=== PATIENT | female | born 1990 | race Caucasian/White ===

== ENCOUNTER 2017-01-30 13:58 | Emergency (ER) | payer MEDICAID, OTHER ==
--- NOTE | 2017-01-30 14:09 | ED PDOC ---
Arrival/HPI - General Time Seen by Provider: 01/30/17 14:09 Historian: Patient - History of Present Illness Narrative History of Present Illness (Text): 01/30/17 14:09 26 y/o female, no significant pmh, nkda, c/o vaginal discharge and foul odor smell x 2 days. Pt. stated that she had unprotected sex about 3 days ago, started to have vaginal discharge with fishy smell, no abdominal or pelvic pain , no urinary symptoms, no night sweat, no dizziness, no chest pain or shortness of breath, no other medical or psychological complaints. Past Medical History - Provider Review Nursing Documentation Reviewed: Yes Family/Social History - Physician Review Nursing Documentation Reviewed: Yes Family/Social History: Unknown Family HX Allergies/Home Meds Allergies/Adverse Reactions: Allergies No Known Allergies Allergy (Verified 01/30/17 14:10) Review of Systems - Review of Systems Constitutional: absent: Fatigue, Fevers Eyes: absent: Vision Changes ENT: absent: Hearing Changes Respiratory: absent: SOB, Cough Cardiovascular: absent: Chest Pain Gastrointestinal: absent: Abdominal Pain, Nausea, Vomiting Genitourinary Female: Vaginal Discharge. absent: Dysuria, Frequency, Vaginal Bleeding Musculoskeletal: absent: Arthralgias, Back Pain Skin: absent: Rash, Pruritis Neurological: absent: Headache Physical Exam Vital Signs Temp Pulse Resp BP Pulse Ox 01/30/17 16:13 80 18 102/68 99 01/30/17 14:23 98.3 F 85 19 126/62 100 - Systems Exam Head: Present: Atraumatic, Normocephalic Pupils: Present: PERRL Extroacular Muscles: Present: EOMI Conjunctiva: Present: Normal Mouth: Present: Moist Mucous Membranes Neck: Present: Normal Range of Motion Respiratory/Chest: Present: Clear to Auscultation, Good Air Exchange. No: Respiratory Distress, Accessory Muscle Use Cardiovascular: Present: Regular Rate and Rhythm, Normal S1, S2. No: Murmurs Abdomen: Present: Normal Bowel Sounds. 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 ). No: Vaginal Discharge , Vaginal Bleeding, Vaginal Lesions, Adenexal Tenderness, Adenexal Mass, Cervical Motion Tendernes, Odor Back: Present: Normal Inspection. No: CVA Tenderness Upper Extremity: Present: Normal Inspection. No: Cyanosis, Edema Lower Extremity: Present: Normal Inspection. No: Edema Neurological: Present: GCS=15, Speech Normal, Motor Func Grossly Intact, Gait Normal, Memory Normal Skin: Present: Warm, Dry, Normal Color. No: Rashes Psychiatric: Present: Alert, Oriented x 3, Normal Insight, Normal Concentration Medical Decision Making ED Course and Treatment: 01/30/17 14:23 -UA -GC and chlamydia, agreed to be prophylatic treatment for gc/chlamydia 01/30/17 15:09 -Urine hcg negative. 01/30/17 16:45 -UA show +UTI -Rocephine and azithromycin ordered. -Discharge home with flagyl, macrobid, stay hydrated, bed rest, notify all your sexual partner for STD testing, use condom in the future, follow up with your own pmd and obgyn within 2 days, return to the ER for any new or worsening signs or symptoms. - Lab Interpretations Lab Results: Lab Results 01/30/17 14:01: Urine Color Light yellow, Urine Appearance Cloudy, Urine pH 7.5 , Ur Specific [place] 1.015, Urine Protein Negative, Urine Glucose (UA) Negative , Urine Ketones Negative, Urine Blood Negative, Urine Nitrate Positive H, Urine Bilirubin Negative, Urine Urobilinogen 0.2, Ur Leukocyte Esterase Moderate H, Urine RBC 0 - 2, Urine WBC 1 - 3, Ur Epithelial Cells 1 - 3, Amorphous Sediment Many, Urine Bacteria Few I have reviewed the lab results: Yes Interpretation: Abnormal lab values (UA+ show +UTI) - Medication Orders Current Medication Orders: Azithromycin (Zithromax) 1,000 mg PO STAT STA PRN Reason: Protocol Stop: 01/30/17 16:44 - 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 Disposition/Present on Arrival - Present on Arrival Any Indicators Present on Arrival: No History of DVT/PE: No History of Uncontrolled Diabetes: No Urinary Catheter: No History of Decub. Ulcer: No - Disposition Have Diagnosis and Disposition been Completed?: Yes Diagnosis: Vaginal discharge, UTI (urinary tract infection) Disposition: HOME/ ROUTINE Disposition Time: 16:47 Patient Plan: Discharge Condition: GOOD Additional Instructions: -Discharge home with flagyl, macrobid, stay hydrated, bed rest, notify all your sexual partner for STD testing, use condom in the future, follow up with your own pmd and obgyn within 2 days, return to the ER for any new or worsening signs or symptoms. Prescriptions: metroNIDAZOLE [Flagyl] 500 mg PO BID #14 tab Nitrofurantoin Macrocrystals [Macrobid] 100 mg PO BID #14 cap Referrals: Marco Adams MD [Primary Care Provider] - Follow up with primary Cheo Fontana MD [Staff Provider] - Follow up with primary Forms: WORK NOTE
[2017-01-30 14:34] VITALS: TEMP 98.3
[2017-01-30 16:13] VITALS: BP 102/68; PULSE 80; RESP 18; O2SAT 99
[2017-01-30 16:21] LABS: PH,URINE 7.5 (4.7-8.0); URINE BILIRUBIN NEGATIVE (NEGATIVE); URINE BLOOD NEGATIVE (NEGATIVE); URINE GLUCOSE (UA) NEGATIVE (NEGATIVE); URINE KETONE NEGATIVE (NEGATIVE); URINE LEUKOCYTE ESTERASE MODERATE Leu/uL (NEGATIVE); URINE PROTEIN NEGATIVE mg/dL (<30 mg/dL); URINE UROBILINOGEN 0.2 E.U./dL (<1 E.U./dL)
[2017-01-30 16:34] LABS: URINE APPEARANCE CLOUDY (CLEAR); URINE COLOR LIGHT YELLOW (YELLOW)
[2017-01-30 16:36] LABS: URINE AMORPHOUS SEDIMENT MANY; URINE BACTERIA FEW (NEG); URINE RBC 0 - 2 /hpf (0-2)
[2017-01-30] MEDS ORDERED: cefTRIAXone (Rocephin) 250 mg Inj IM STA (16:43)
== END 2017-01-30 16:50 | disposition home or self-care (01) ==
LOC: ED 13:58
DX: N39.0 Urinary tract infection, site not specified (principal); N89.8 Other specified noninflammatory disorders of vagina
CPT/HCPCS: 81001; 87086; 87181; 87491; 87591; 96372; 99283; J0696

== ENCOUNTER 2017-08-24 19:34 | Emergency (ER) | payer SELFPAY ==
[2017-08-24 19:45] VITALS: TEMP 98.8
--- NOTE | 2017-08-24 20:55 | ED PDOC ---
Arrival/HPI - General Chief Complaint: Abdominal Pain Time Seen by Provider: 08/24/17 19:54 Historian: Patient - History of Present Illness Narrative History of Present Illness (Text): 08/24/17 19:55 A 26 year old female, with no significant past medical history, presents to the emergency department complaining of abdominal cramp-like discomfort. Patient is currently 13 weeks . Patient reports today during an event, she was accidentally struck by a basketball to abdomen. She became concerned and is here in the ER to be evaluated to make sure baby is in normal state of health. Patient denies any vaginal bleeding/discharge, nausea. vomiting, diarrhea, shortness of breath, chest pain, or any other complaints at this time. No PMD Past Medical History - Provider Review Nursing Documentation Reviewed: Yes - Infectious Disease Hx of Infectious Diseases: None - Reproductive Menopause: No - Cardiac Hx Cardiac Disorders: No - Neurological Hx Neurological Disorder: No - Genitourinary/Gynecological Other/Comment: kidney infection - Psychiatric Hx Psychophysiologic Disorder: No Hx Substance Use: No - Anesthesia Hx Anesthesia: No Family/Social History - Physician Review Nursing Documentation Reviewed: Yes Family/Social History: No Known Family HX Smoking Status: Light Smoker < 10 Cigarettes Daily Hx Alcohol Use: No Hx Substance Use: No Allergies/Home Meds Allergies/Adverse Reactions: Allergies No Known Allergies Allergy (Verified 08/24/17 19:45) Home Medications: Home Meds Medication Instructions Recorded Confirmed No Known Home Med 08/24/17 08/24/17 Review of Systems - Physician Review All systems were reviewed & negative as marked: Yes - Review of Systems Respiratory: absent: SOB Cardiovascular: absent: Chest Pain Gastrointestinal: Abdominal Pain (abdominal cramp-like discomfort s/p accidentally being struck by basketball). absent: Diarrhea, Nausea, Vomiting Genitourinary Female: absent: Vaginal Bleeding, Vaginal Discharge Physical Exam Vital Signs Reviewed: Yes Vital Signs Temp Pulse Resp Pulse Ox 08/24/17 19:41 98.8 F 62 16 100 Temperature: Afebrile Pulse: Regular Respiratory Rate: Normal Appearance: Positive for: Well-Appearing Pain Distress: None Mental Status: Positive for: Alert and Oriented X 3 - Systems Exam Head: Present: Atraumatic, Normocephalic Pupils: Present: PERRL Extroacular Muscles: Present: EOMI Conjunctiva: Present: Normal Mouth: Present: Moist Mucous Membranes Neck: Present: Normal Range of Motion Respiratory/Chest: Present: Clear to Auscultation, Good Air Exchange. No: Respiratory Distress, Accessory Muscle Use Cardiovascular: Present: Regular Rate and Rhythm, Normal S1, S2. No: Murmurs Abdomen: Present: Distention (distention associated with gestational age), Normal Bowel Sounds. No: Tenderness, Peritoneal Signs Back: Present: Normal Inspection Upper Extremity: Present: Normal Inspection, Normal ROM (full ROM x 4). No: Cyanosis, Edema Lower Extremity: Present: Normal Inspection, Normal ROM (full ROM x 4). No: Edema Neurological: Present: GCS=15, CN II-XII Intact, Speech Normal Skin: Present: Warm, Dry, Normal Color. No: Rashes Psychiatric: Present: Alert, Oriented x 3, Normal Insight, Normal Concentration Medical Decision Making ED Course and Treatment: 08/24/17 20:00 Impression: 26 year old female with abdominal cramp-like discomfort s/p accidentally being struck by a basketball. Plan: -- Age Ultrasound -- Reassess and disposition Progress Notes: 08/24/17 21:25 US Age shows: Right ovary: Unremarkable. No mass. Normal blood flow. Left ovary: Unremarkable. No mass. Normal blood flow. Free fluid: No free fluid. Other findings: Single live intrauterine , ultrasound age is 14 weeks. heart rate is 148 beats per minute. Fundal placenta. IMPRESSION: Single live intrauterine , ultrasound age is 14 weeks. heart rate is 148 beats per minute. Fundal placenta. - RAD Interpretation Radiology Orders: 08/24/17 20:00 AGE [US] Stat Catalyst Operator: Radiologist - Scribe Statement The provider has reviewed the documentation as recorded by the Jovani Atkinson Provider Scribe Attestation: All medical record entries made by the Scribe were at my direction and personally dictated by me. I have reviewed the chart and agree that the record accurately reflects my personal performance of the history, physical exam, medical decision making, and the department course for this patient. I have also personally directed, reviewed, and agree with the discharge instructions and disposition. Disposition/Present on Arrival - Present on Arrival Any Indicators Present on Arrival: No History of DVT/PE: No History of Uncontrolled Diabetes: No Urinary Catheter: No History of Decub. Ulcer: No History Surgical Site Infection Following: None - Disposition Have Diagnosis and Disposition been Completed?: Yes Diagnosis: Normal Disposition: HOME/ ROUTINE Disposition Time: 21:47 Patient Plan: Discharge Condition: GOOD Additional Instructions: Rest/no strenuous physical activity/follow up with your doctor as needed Referrals: PCP,NO [Primary Care Provider] - Follow up with primary Forms: [employer] (Telugu)
[2017-08-24 21:54] VITALS: BP 118/72; PULSE 68; RESP 18; O2SAT 99
--- NOTE | 2017-08-25 10:16 | US ---
PROCEDURE: ultrasound HISTORY: cramps COMPARISON: None TECHNIQUE: Standard protocol for this study/examination. FINDINGS: Variable presentation. Fundal Placenta. No evidence of abruption or previa Gestational age derived from LMP Cannot be ascertained based in the absence of a reliable/ known LMP. Gestational age derived from the following biometric parameters fourteen weeks. MARIN 02/22/2018 Biparietal diameter 2.52 cm Head circumference 9.32 cm Abdominal circumference 7.61 cm Femur length 1.13 cm Estimated weight 82.6 g Calculated cardiac rate 148 beats per min. Closed cervix measuring 4.3 cm Right ovary measures 1.9 x 3.2 x 3.4. Doppler arterial flow documented. Left ovary measures 1.8 x 2.5 x 3.1 cm. Doppler arterial flow documented. IMPRESSION: Fourteen weeks live intrauterine gestation. Gestational concordance cannot be ascertained in the absence of reliable LMP.
== END 2017-08-24 21:53 | disposition home or self-care (01) ==
LOC: ED 19:34
DX: O26.892 Other specified pregnancy related conditions, second trimester (principal); Z3A.14 14 weeks gestation of pregnancy

== ENCOUNTER 2017-09-22 16:10 | Emergency (ER) | payer MEDICAID ==
--- NOTE | 2017-09-22 17:33 | ED PDOC ---
Arrival/HPI - General Chief Complaint: Abdominal Pain Time Seen by Provider: 09/22/17 16:29 Historian: Patient - History of Present Illness Narrative History of Present Illness (Text): 09/22/17 17:29 27yo female who present to ED with complaint of left flank pain with odors urine and urinary frequency. Patient states she saw was seen by her [employer]GE[employer] today and was told that she have kidney infection, so she was referred to the ED for treatment. She denies vaginal bleeding, nausea, vomiting, fever, chills, any other complaint. Past Medical History - Provider Review Nursing Documentation Reviewed: Yes - Infectious Disease Hx of Infectious Diseases: None - Cardiac Hx Cardiac Disorders: No - Pulmonary Hx Respiratory Disorders: No - Neurological Hx Neurological Disorder: No - HEENT Hx HEENT Disorder: No - Renal Hx Renal Disorder: Yes Hx Pyelonephritis: Yes - Endocrine/Metabolic Hx Endocrine Disorders: No - Hematological/Oncological Hx Blood Disorders: No - Integumentary Hx Dermatological Disorder: No - Musculoskeletal/Rheumatological Hx Musculoskeletal Disorders: No - Gastrointestinal Hx Gastrointestinal Disorders: No - Genitourinary/Gynecological Hx Genitourinary Disorders: No - Psychiatric Hx Psychophysiologic Disorder: No Hx Substance Use: No - Anesthesia Hx Anesthesia: No Family/Social History - Physician Review Nursing Documentation Reviewed: Yes Family/Social History: Unknown Family HX Smoking Status: QUIT Hx Alcohol Use: No Hx Substance Use: No Allergies/Home Meds Allergies/Adverse Reactions: Allergies No Known Allergies Allergy (Verified 09/22/17 16:22) Home Medications: Home Meds Medication Instructions Recorded Confirmed Multivit/Folic Acid/I 1 tab PO DAILY 09/22/17 09/22/17 [] Review of Systems - Physician Review All systems were reviewed & negative as marked: Yes - Review of Systems Constitutional: Normal Eyes: Normal ENT: Normal Respiratory: Normal Cardiovascular: Normal Gastrointestinal: Normal, Other (Left flank pain). absent: Abdominal Pain, Constipation, Diarrhea, Nausea, Vomiting, Hematemesis Genitourinary Female: Normal Musculoskeletal: Normal Skin: Normal Neurological: Normal Endocrine: Normal Hemo/Lymphatic: Normal Psychiatric: Normal Physical Exam Vital Signs Reviewed: Yes Vital Signs Temp Pulse Resp BP Pulse Ox 09/22/17 19:36 98.7 F 65 18 107/51 L 100 09/22/17 16:22 98.9 F 88 16 111/70 96 Temperature: Afebrile Blood Pressure: Normal Pulse: Regular Respiratory Rate: Normal Appearance: Positive for: Well-Appearing, Non-Toxic, Comfortable Pain Distress: None Mental Status: Positive for: Alert and Oriented X 3 - Systems Exam Head: Present: Atraumatic, Normocephalic Pupils: Present: PERRL Extroacular Muscles: Present: EOMI Conjunctiva: Present: Normal Mouth: Present: Moist Mucous Membranes Neck: Present: Normal Range of Motion Respiratory/Chest: Present: Clear to Auscultation, Good Air Exchange. No: Respiratory Distress, Accessory Muscle Use Cardiovascular: Present: Regular Rate and Rhythm, Normal S1, S2. No: Murmurs Abdomen: Present: Other (Soft). No: Tenderness, Distention, Peritoneal Signs, Rebound, Guarding, McBurney's Point Tender, Rovsing's Sign Present Back: Present: Normal Inspection Upper Extremity: Present: Normal Inspection. No: Cyanosis, Edema Lower Extremity: Present: Normal Inspection. No: Edema Neurological: Present: GCS=15, CN II-XII Intact, Speech Normal Skin: Present: Warm, Dry, Normal Color. No: Rashes Psychiatric: Present: Alert, Oriented x 3, Normal Insight, Normal Concentration Medical Decision Making ED Course and Treatment: 09/22/17 21:19 Pt presented for stated history. She was hemodynamically stable and comfortable in ED. Lab was unremarkable. Cystitis was noted in UA. She was treated with a gram of Rocephin in ED and DC home with Keflex. Referred to her OB. - Lab Interpretations Lab Results: 09/22/17 17:12 09/22/17 17:12 Lab Results 09/22/17 17:12: PT 11.1, INR 0.97, APTT 32.1 09/22/17 17:12: Sodium 138, Potassium 3.8, Chloride 104, Carbon Dioxide 24, Anion Gap 14, BUN 11, Creatinine 0.5 L, Est GFR ( Amer) > 60, Est GFR ( Non-Af Amer) > 60, Random Glucose 83, Calcium 9.0, Total Bilirubin 0.4, AST 20, ALT 19, Alkaline Phosphatase 47, Total Protein 6.8, Albumin 4.0, Globulin 2.9, Albumin/Globulin Ratio 1.4 09/22/17 17:12: WBC 7.6, RBC 3.74, Hgb 11.0 L, Hct 32.5 L, MCV 86.9, MCH 29.4, MCHC 33.8, RDW 14.2, Plt Count 164, MPV 11.0, Gran % 71.5 H, Lymph % (Auto) 21.0 L, [place] % (Auto) 6.6 H, Eos % (Auto) 0.8 L, Baso % (Auto) 0.1, Gran # 5.46 , Lymph # (Auto) 1.6, [place] # (Auto) 0.5, Eos # (Auto) 0.1, Baso # (Auto) 0.01 09/22/17 17:12: Urine Color yellow, Urine Appearance Clear, Urine pH 8.0, Ur Specific [place] 1.020, Urine Protein Trace H, Urine Glucose (UA) Negative, Urine Ketones Negative, Urine Blood Negative, Urine Nitrate Positive H, Urine Bilirubin Negative, Urine Urobilinogen 0.2, Ur Leukocyte Esterase Trace H, Urine RBC 2 - 5, Urine WBC 2 - 5, Ur Epithelial Cells 6 - 8, Amorphous Sediment Trace, Urine Bacteria Small - Medication Orders Current Medication Orders: Discontinued Medications Ceftriaxone Sodium (Rocephin 1 Gram Ivpb) 1 gm in 100 mls @ 200 mls/hr IVPB STAT STA PRN Reason: Protocol Stop: 09/22/17 18:27 Last Admin: 09/22/17 19:22 Dose: 200 mls/hr eMAR Start Stop Document 09/22/17 19:22 HI (Rec: 09/22/17 19:22 [email or web address]) Intravenous Solution Start Date 09/22/17 Start Time 19:22 Disposition/Present on Arrival - Present on Arrival Any Indicators Present on Arrival: No History of DVT/PE: No History of Uncontrolled Diabetes: No Urinary Catheter: No History of Decub. Ulcer: No History Surgical Site Infection Following: None - Disposition Have Diagnosis and Disposition been Completed?: Yes Diagnosis: Cystitis Disposition: HOME/ ROUTINE Disposition Time: 18:45 Patient Plan: Discharge Patient Problems: Current Active Problems Problem Status Onset Cystitis Acute Condition: STABLE Discharge Instructions (ExitCare): Acute Cystitis (DC) Additional Instructions: Follow up with your OB Drink plenty of fluid Return to ED for any new or worsening symptoms Prescriptions: Cephalexin [Keflex] 500 mg PO QID #28 capsule Ref[place] [facility] [place] [facility] [place] - [facility] - Follow up with primary Forms: [employer] (Paraguayan)
[2017-09-22 17:38] LABS: BASO # 0.01 K/mm3 (0.0-2.0); BASO % 0.1 % (0.0-3.0); EOS # 0.1 (0.0-0.7); EOS % 0.8 % (1.5-5.0); GRAN # 5.46 (1.4-6.5); GRAN % 71.5 % (50.0-68.0); LYMPH # 1.6 (1.2-3.4); MEAN CELL VOLUME 86.9 fl (80.0-105.0); MEAN CORPUSCULAR HEMOGLOBIN 29.4 pg (25.0-35.0); MEAN CORPUSCULAR HGB CONC 33.8 g/dl (31.0-37.0); MONO # 0.5 (0.1-0.6); MONO % 6.6 % (1.0-6.0); RBC 3.74 10^6/uL (3.5-6.1); RED CELL DISTRIBUTION WIDTH 14.2 % (11.5-14.5); URINE BILIRUBIN NEGATIVE (NEGATIVE); URINE BLOOD NEGATIVE (NEGATIVE); URINE GLUCOSE (UA) NEGATIVE (NEGATIVE); URINE LEUKOCYTE ESTERASE TRACE Leu/uL (NEGATIVE); URINE PROTEIN TRACE mg/dL (<30 mg/dL); URINE UROBILINOGEN 0.2 E.U./dL (<1 E.U./dL); WHITE BLOOD COUNT 7.6 10^3/ul (4.5-11.0)
[2017-09-22 17:41] LABS: INR 0.97
[2017-09-22 17:43] LABS: ALB/GLOB RATIO 1.4 (1.1-1.8); ALT/SGPT 19 U/L (7-56); AST/SGOT 20 U/L (14-36); BLOOD UREA NITROGEN 11 mg/dL (7-21); GFR AFRICAN-AMERICAN > 60; GFR NON-AFRICAN AMERICAN > 60
[2017-09-22 17:54] LABS: URINE APPEARANCE CLEAR (CLEAR)
[2017-09-22 17:56] LABS: URINE AMORPHOUS SEDIMENT TRACE; URINE BACTERIA SMALL (NEG)
[2017-09-22] MEDS ORDERED: cefTRIAXone 1 gm 1 GM/100 ML BAG IVPB STA (17:58)
[2017-09-22 19:37] VITALS: BP 107/51; PULSE 65; RESP 18; TEMP 98.7; O2SAT 100
[2017-09-24 14:32] LABS: PARTIAL THROMBOPLASTIN TIME 32.1 Seconds (25.1-36.5); PROTHROMBIN TIME 11.1 SECONDS (9.4-12.5)
== END 2017-09-22 19:41 | disposition home or self-care (01) ==
LOC: ED 16:10
DX: N30.90 Cystitis, unspecified without hematuria (principal)
CPT/HCPCS: 80053; 81001; 85025; 85610; 85730; 87086; 87181; 96374; 99283; J0696